=== PATIENT | male | born 1990 | race Caucasian/White ===

== ENCOUNTER 2020-01-01 16:57 | Emergency (ER) | payer BC ==
[2020-01-01 17:01] VITALS: BP 133/98; PULSE 86
[2020-01-01] MEDS: Tetracaine HCl/PF 0.5% 4 ML Bottle EYERT ONE (17:09)
[2020-01-01] MEDS: Balanced Salt Solution Ophth Irrig 30 ML Bottle EYERT ONE (17:09)
--- NOTE | 2020-01-01 17:23 | EDM.PDOC ---
ED HPI GENERAL MEDICAL PROBLEM - General Chief Complaint: Eye Problems Stated Complaint: RIGHT EYE FOREIGN BODY Time Seen by Provider: 01/01/20 17:19 Source of Information: Reports: Patient History Limitations: Reports: No Limitations - History of Present Illness INITIAL COMMENTS - FREE TEXT/NARRATIVE: Right eye with questionable foreign body Was cutting up wood Foreign body sensation under upper lid Onset: Gradual Duration: Hour(s):, Getting Worse Location: Reports: Face Quality: Reports: Throbbing Severity: Moderate - Related Data Allergies Allergy/AdvReac Type Severity Reaction Status Date / Time No Known Allergies Allergy Verified 01/01/20 17:01 Home Meds: Home Meds . [No Known Home Meds] 01/01/20 [History] ED ROS GENERAL - Review of Systems Review Of Systems: See Below HEENT: Reports: Eye Pain ED EXAM GENERAL W FULL EYE - Physical Exam Exam: See Below Exam Limited By: No Limitations Eye Exam: Right Eye: Conjunctival Injection, Corneal Abrasion, Left Eye: Normal Inspection, Bilateral Eye: EOMI, Normal Fundi Course - Vital Signs Last Recorded V/S: Last Vital Signs Temp 98 F 01/01/20 16:59 Pulse 86 01/01/20 16:59 Resp 20 01/01/20 16:59 BP 133/98 H 01/01/20 16:59 Pulse Ox 98 01/01/20 16:59 - Orders/Labs/Meds Meds: Medications Discontinued Medications Generic Name Dose Route Start Last Admin Trade Name Freq PRN Reason Stop Dose Admin Balanced Salt Solution 30 ml 01/01/20 17:03 01/01/20 17:09 Eye Stream Eye Rinse EYERT 01/01/20 17:04 30 ml ONETIME ONE Administration Tetracaine HCl 1 ml 01/01/20 17:03 01/01/20 17:09 Tetracaine 0.5% Steri-Unit [place]en EYERT 01/01/20 17:04 2 applic ASDIRECTED ONE Administration - Re-Assessments/Exams Free Text/Narrative Re-Assessment/Exam: 01/01/20 17:20 Eye irrigated after stain exam Exam showed corneal abrasion on right Lids swept with Q-tip No identified foreign bodies Rx Gent drops sent with pt Departure - Departure Time of Disposition: 17:30 Disposition: Home, Self-Care 01 Clinical Impression: Corneal abrasion Qualifiers: Encounter type: initial encounter Laterality: right Qualified Code(s): S05.01XA - Injury of conjunctiva and corneal abrasion without foreign body, right eye, initial encounter - Discharge Information *PRESCRIPTION DRUG MONITORING PROGRAM REVIEWED*: Not Applicable *COPY OF PRESCRIPTION DRUG MONITORING REPORT IN PATIENT ANN: Not Applicable Instructions: Corneal Abrasion Referrals: PCP,None [Primary Care Provider] - Additional Instructions: Rx Gent eye drops 2 drops to right eye 4 times a day for 5 days Sepsis Event Note - Evaluation Sepsis Screening Result: No Definite Risk - Focused Exam Vital Signs: Vital Signs Temp Pulse Resp BP Pulse Ox 01/01/20 16:59 98 F 86 20 133/98 H 98 Date Exam was Performed: 01/01/20 Time Exam was Performed: 17:19
== END 2020-01-01 17:31 | disposition home or self-care (01) ==
LOC: LL.ED 16:57
DX: S05.01XA Injury of conjunctiva and corneal abrasion without foreign body, right eye, initial encounter (principal); X58.XXXA Exposure to other specified factors, initial encounter
CPT/HCPCS: 99283